=== PATIENT | female | born 1995 | race African-American/Black ===

== ENCOUNTER 2016-09-12 07:42 | Emergency (ER) | payer OTHER ==
[~2016-09-12] VITALS: Ht 170.2 cm; Wt 61.2 kg
[2016-09-12 07:46] VITALS: BP 127/84; PULSE 61; TEMP 36.9; O2SAT 99; Ht 170.2 cm; Wt 61.2 kg
[2016-09-12] MEDS ORDERED: ACET-1256 PO (07:50)
[2016-09-12] MEDS ORDERED: HYDR-5688 PO (08:10)
[2016-09-12] MEDS ORDERED: PENI500T2 PO (08:10)
--- NOTE | 2016-09-12 08:11 | EMERGENCY ROOM VISIT NOTE ---
ED Visit Note First contact with patient: 07:48 CHIEF COMPLAINT: "I have a toothache." HISTORY OF PRESENT ILLNESS: Patient is a 20-year-old -[place] female who presents to the emergency department for evaluation of right upper and lower dental pain 2 days. She reports that the teeth have been broken for "a while" but has only become painful recently. She has been rinsing with salt water and peroxide and tried using Tylenol. She reports occasional blood in her mouth. She recently got dental insurance through her employer and is not yet established with a dentist. Denies facial swelling or fever. She reports that she has not been on any antibiotics for dental issues since the last time she was here in 2014. REVIEW OF SYSTEMS: Review of systems as per HPI. All other systems reviewed were negative. At least 6 systems reviewed. PMH: Electronic medical records are reviewed and summarized as above/below. See Problem List. SOCIAL HISTORY: Patient lives at home. Employed. Nonsmoker. PHYSICAL EXAM: Vital Signs: Reviewed Nurse's notes. CONSTITUTIONAL: Patient is a well-appearing 20-year-old -[place] female who is awake and alert and in no acute distress. EARS: Tympanic membranes intact, not inflamed, have normal contour. External canals clear. THROAT: No pharyngeal injection, exudates, or tonsillar hypertrophy. Airway is patent. MOUTH: Overall the patient has fair dentition. Examination of the right lower gumline shows a fractured and carious right second molar. She has a grossly decayed right upper molar as well. No obvious pus, swelling or fluid along the gumline. There is no facial swelling, cervical or submandibular lymphadenopathy. ED course: The patient was seen and assessed as above. Patient was given Pen- Vee K 500 mg orally in the emergency department. She will be placed on course of Pen-Vee K until she can follow-up with a dentist. She has no evidence for facial cellulitis or Darío's angina. Problem List Medical Problems: (1) Dental abscess Status: Resolved (2) Epigastric abdominal pain Status: Resolved (3) Facial swelling Status: Resolved (4) GERD (gastroesophageal reflux disease) Status: Chronic (5) GERD (gastroesophageal reflux disease) Status: Resolved (6) Pain, dental Status: Resolved (7) Pain, dental Status: Resolved (8) Periapical abscess Status: Resolved Current/Historical Medications Scheduled Acetaminophen (Tylenol), 1,000 MG PO Q6H Allergies Coded Allergies: No Known Allergies (Unverified , 09/12/16) Vital Signs Date Time Temp Pulse Resp B/P Pulse Ox O2 Delivery O2 Flow Rate FiO2 09/12/16 07:46 36.9 61 18 127/84 99 Room Air Departure Information Impression Primary Impression: Dentalgia Prescriptions Hydrocodone/Acetaminophen 5MG/325MG ([place] 5MG/325MG) Tab 1-2 TABLETS PO Q4 Y for Pain, #15 TAB For Initial Treatment Prov: Margret Puente PA 09/12/16 Penicillin V Potassium (VEETIDS) 500 Mg Tab 500 MG PO QID, #40 TAB Prov: Margret Puente PA 09/12/16 Referrals No Doctor, Assigned (PCP) Patient Instructions My [facility] Additional Instructions Penicillin 500mg: Take one pill four times daily for 10 days for your dental infection. All antibiotics can cause diarrhea. If this occurs and you feel worse or it does not resolve in 1-2 days follow up with your doctor or return to the Emergency Department as this could be signs of serious underlying problems. Any medication can cause an allergic reaction, stop the pills immediately and return to the ER for rash, hives, breathing difficulties, or swelling. Ibuprofen(Motrin, Advil) may be used for fever or pain. Use 600mg every six hours as needed. Take with food. Avoid using more than 2400mg in a 24 hour period. Do not use 2400mg per day for more than three consecutive days without physician direction. Prolonged inappropriate use can lead to stomach upset or ulcers. (AND/OR) Acetaminophen(Tylenol) may be used for fever or pain. Use 1000mg every six hours as needed. Avoid using more than 4000mg in a 24 hour period. Hydrocodone/Acetaminophen ([place]) 5/325 mg: Take 1-2 pills every four hours for breakthrough pain. Avoid alcohol, operating machinery or dangerous equipment, working on ladders or roofs, DRIVING, or situations where being under the influence may be dangerous. It is recommended to use an [id number] stool softener such as Colace, 100mg twice daily while taking this medication to avoid constipation. Saltwater gargles after meals and before bedtime. Soft foods. Orajel/Anbesol/clove oil as needed for discomfort. Followup with your dentist for definitive management. You may also follow up with your primary care physician for pain/care management until you can be seen by your dentist.
[2016-09-12] MEDS ORDERED: PENICILLIN V POTASSIUM 250 MG TAB PO ONE (08:15)
== END 2016-09-12 08:21 | disposition home or self-care (01) ==
LOC: C.EDB 07:44 → C.EDA 08:21
DX: K08.89 Other specified disorders of teeth and supporting structures (principal); K21.9 Gastro-esophageal reflux disease without esophagitis